=== PATIENT | male | born 1950 | race Caucasian/White ===

== ENCOUNTER → 2017-03-30 | Outpatient (CLI) | payer OTHER ==
[~2017-03-30] MED LIST: ALEVE220 MG PO; FLEXERIL10 MG PO; LISINOPRIL5 MG PO; PERCOCET 325 MG1 TA7 PO; PREDNICOT20 MG PO; PRILOSEC20 MG PO
[2017-03-30 09:08] LABS: BASO # 0.1 10*3/uL (0.0-0.1); EOS # 0.2 10*3/uL (0.0-0.4); EOS % 3.4 % (1.0-4.0); HEMATOCRIT 42.5 % (42.0-52.0); HEMOGLOBIN 14.6 g/dl (14.0-18.0); LYMPH # 2.2 10*3/uL (1.3-4.4); LYMPH % 37.6 % (27.0-41.0); MEAN CELL VOLUME 101.2 fl (80.0-94.0); MEAN CORPUSCULAR HGB 34.8 pg (27.0-31.0); MEAN CORPUSCULAR HGB CONC 34.4 g/dl (33.0-37.0); MEAN PLATELET VOLUME 9.8 fl (9.6-12.3); MONO # 0.5 10*3/uL (0.1-1.0); NEUT # 2.9 10*3/uL (2.3-7.9); NEUT % 48.8 % (47.0-73.0); PLATELET COUNT AUTOMATED 231 10*3/uL (130-400); RED CELL DISTRI WIDTH 13.7 % (0-14.5); WHITE BLOOD COUNT 5.9 10*3/uL (4.8-10.8)
[2017-03-30 09:33] LABS: ALBUMIN 3.7 gm/dl (3.1-4.5); ALKALINE PHOSPHATASE 121 U/L (45-117); BUN 20 mg/dl (7-24); CHLORIDE 106 mmol/L (98-107); CHOLESTEROL 167 mg/dL (<200); CREATININE 0.94 mg/dL (0.70-1.30); HDL CHOLESTEROL 49 mg/dl (40-60); LDL CHOLESTEROL 104 mg/dL (9-159); POTASSIUM 4.2 mmol/L (3.5-5.1); SGOT/AST 13 IU/L (3-35); SGPT/ALT 18 U/L (12-78); SODIUM 139 mmol/L (136-145); TOTAL PROTEIN 6.6 gm/dL (6.4-8.2); TRIGLYCERIDES 72 mg/dl (<150); VLDL CHOLESTEROL 14 mg/dL (6-40)
== END | disposition home or self-care (01) ==
LOC: LAB 08:47
PROVIDERS: Internal Medicine
DX: Z12.5 Encounter for screening for malignant neoplasm of prostate (principal); I10 Essential (primary) hypertension; E66.3 Overweight; R35.0 Frequency of micturition

== ENCOUNTER 2017-06-29 04:06 | Emergency (ER) | payer OTHER ==
[~2017-06-29] VITALS: Ht 175.2 cm; Wt 72.6 kg
[2017-06-29] MEDS ORDERED: ANAPROX DS550 MG PO (04:51)
[2017-06-29] MEDS ORDERED: CYCLOBENZAPRINE5 M3 PO (04:51)
== END 2017-06-29 05:04 | disposition home or self-care (01) ==
LOC: ED 04:06
DX: M75.81 Other shoulder lesions, right shoulder (principal); F17.200 Nicotine dependence, unspecified, uncomplicated; F10.10 Alcohol abuse, uncomplicated; Z79.899 Other long term (current) drug therapy

== ENCOUNTER → 2021-11-16 | Outpatient (CLI) | payer BC, OTHER ==
[~2021-11-16] MED LIST changes: +ANAPROX DS550 MG PO; +CYCLOBENZAPRINE5 M3 PO
== END | disposition home or self-care (01) ==
LOC: RAD 09:42
PROVIDERS: ATTEND Family Medicine
DX: M51.36 Other intervertebral disc degeneration, lumbar region (principal); M41.86 Other forms of scoliosis, lumbar region

== ENCOUNTER → 2023-04-25 | Outpatient (CLI) | payer OTHER ==
[2023-04-25 21:43] LABS: BF NEUTROPHILS 75 %
[2023-04-25 22:22] LABS: BF LYMPHOCYTES 21 %; BF MACROPHAGES 4 %
[2023-04-26 10:07] LABS: ACID FAST SPEC PROCESSING Direct Inoculation (.)
== END | disposition home or self-care (01) ==
LOC: LAB 16:41
PROVIDERS: ATTEND Orthopaedic Surgery
DX: G89.18 Other acute postprocedural pain (principal)